=== PATIENT | female | born 1995 | race Caucasian/White ===

== ENCOUNTER 2022-02-07 13:18 | Outpatient (CLI) | payer OTHER, SELFPAY ==
[2022-02-07 21:42] LABS: Chloride* 106 mmol/L (96-114); Sodium* 141 mmol/L (135-149)
[2022-02-07 21:43] LABS: Potassium* 4.8 mmol/L (3.6-5.1)
[2022-02-07 21:45] LABS: Carbon Dioxide* 25 mmol/L (20-32); Creatinine* 0.8 mg/dL (0.5-1.5); Estimated Glomerular Filt Rate 104 ml/min
[2022-02-07 21:46] LABS: Blood Urea Nitrogen* 14 mg/dL (5-24); Calcium* 9.8 mg/dL (8.4-10.6); Glucose* 83 mg/dL (60-115)
[2022-02-07 22:31] LABS: TSH With Reflex to FT4* 0.671 uIU/mL (0.270-4.200)
== END 2022-02-07 13:19 | disposition home or self-care (01) ==
PROVIDERS: PCP Emergency Medicine; Visit Provider Emergency Medicine
DX: F31.9 Bipolar disorder, unspecified (principal)
CPT/HCPCS: 80048; 84443